=== PATIENT | male | born 1980 | race Caucasian/White ===

== ENCOUNTER 2016-10-03 17:13 | Emergency (ER) | payer BC ==
[2016-10-03] MEDS ORDERED: ONDANSETRON DISINTEGRATING 4 MG TAB PO ONE (17:21)
[2016-10-03 17:30] VITALS: TEMP 98.1
--- NOTE | 2016-10-03 18:32 | EDPHY ---
H & P Stated Complaint: vomit, diarrhea, R lower abd pain Time Seen by Provider: 10/03/16 18:31 - Personal History Current Tetanus/Diphtheria Vaccine: Unsure Current Tetanus Diphtheria and Acellular Pertussis (TDAP): Unsure - Medical/Surgical History Hx Asthma: No Hx Chronic Respiratory Disease: No Hx Diabetes: No Hx Cardiac Disease: No Hx Renal Disease: No Hx Cirrhosis: No Hx Alcoholism: No Hx HIV/AIDS: No Hx Splenectomy or Spleen Trauma: No Other PMH: no abd surgeries in past. CIDPN - Social History Smoking Status: Never smoked Constitutional: Initial Vital Signs Temperature (C) 36.7 C 10/03/16 17:26 Heart Rate 89 10/03/16 17:26 Respiratory Rate 20 10/03/16 17:26 Blood Pressure 154/117 H 10/03/16 17:26 O2 Sat (%) 98 10/03/16 17:26 O2 Delivery Mode Room Air Allergies/Adverse Reactions: No Known Allergies Allergy (Unverified 10/03/16 20:25) Medical Decision Making - Diagnostics Imaging Results: Imaging Impressions Abdomen CT 10/03/16 18:42 Impression: 1. Focal area of colonic narrowing in the sigmoid: This may be focal decreased motility secondary to the Imodium. 2. Diffuse gaseous dilatation of the colon proximal to the abnormal region in the sigmoid colon. 3. See above report for additional findings. Results called and discussed with Ady Quiroz MD on 10/03/2016 at 20:07 Imaging: Discussed imaging studies w/ petrography teacher Radiologist, I viewed and interpreted images myself ED Course/Re-evaluation: CHIEF COMPLAINT: N/V/D abdominal pain HISTORY OF PRESENT ILLNESS: The patient is a 36 y/o male complaining of vomiting, diarrhea, and RLQ abdominal pain over the last two days. He first developed nausea and vomiting Thursday morning that he initially attributed to food poisoning. He continued to vomit through Thursday night, but it mostly resolved by . He then began have diarrhea that was so frequent he was unable to leave the bathroom. He describes his stool as yellow liquid. This was associated with abdominal pain that has progressively become more severe and is primarily located along his RLQ. He has been unable to eat or drink much since onset. He took Imodium today, but feels his abdominal pain worsened after using it. No history of abdominal surgeries. REVIEW OF SYSTEMS: A 10 point review of systems was performed and is negative with the exception of the elements mentioned in the history of present illness. PHYSICAL EXAM: HR, BP, O2 Sat, RR. Temp noted General Appearance: Alert, well hydrated, appropriate, and non-toxic appearing. Head: Atraumatic without scalp tenderness or obvious injury Eyes: Pupils equal, round, reactive to light and accommodation, EOMI, no trauma , no injection. Nose: Atraumatic, no rhinorrhea, clear. Throat: There is no erythema or exudates, no lesions, normal tonsils, mucus membranes moist. Neck: Supple, nontender, no lymphadenopathy. Respiratory: No retractions, no distress, no wheezes, and no accessory muscle use. Lungs are clear to auscultation bilaterally. Cardiovascular: Regular rate and rhythm, no murmurs, rubs, or gallops. Good capillary refill all extremities. Gastrointestinal: Abdomen is soft, diffuse tenderness worse in RLQ, non- distended, no masses, no rebound, no guarding, no peritoneal signs. Musculoskeletal: Normal active ROM of all extremities, atraumatic. Neurological: Alert, appropriate, and interactive. Nonfocal neuro exam. Skin: No rashes, good turgor, no nodules on palpation. Past medical history: CIDP - chronic inflammatory demyelinating polyneuropathy Past surgical history: tonsillectomy Family history: noncontributory Social history: Employed DIAGNOSTICS/PROCEDURES/CRITICAL CARE TIME: Abdominal CT: gastroenteritis, dilated colon DIFFERENTIAL DIAGNOSIS: The differential diagnosis for the patient's vomiting and abdominal pain included but was not limited to gastroenteritis, gastritis, appendicitis, medication side effect, cholecystitis, hernias, testicular torsion , and urinary tract infection. MEDICAL DECISION MAKING: This is a normally healthy 36 y/o male who presents with 2-day history of vomiting and diarrhea and 1-day history of RLQ abdominal pain. He has diffuse abdominal tenderness on exam worse in RLQ. He is afebrile and exam is otherwise unremarkable. Plan for IV, fluids, symptom management, and abdominal CT. 1mg Dilaudid, 4mg IV Zofran, 1L IV NS administered. 2024: Reassessed patient and discussed work up. CT shows gastroenteritis. Labs unremarkable. He feels improved since medication administration and his abdomen is much less tender on reexamination. He is comfortable with plan for discharge home with scripts for Zofran and [place]. I've recommended discontinuing the Imodium as this worsened his symptoms. He's been referred to his PCP or GI as needed for follow up. Strict return precautions given. - Data Points Laboratory Results: Laboratory Results 10/03/16 18:45 10/03/16 18:45 10/03/16 10/03/16 10/03/16 18:55 18:45 18:45 WBC 7.59 10^3/uL 10^3/uL (3.80-9.50) RBC 5.59 10^6/uL 10^6/uL (4.40-6.38) Hgb 17.3 g/dL g/dL (13.7-17.5) POC Hgb 17.0 gm/dL gm/dL (14.5-17.3) Hct 49.3 % % (40.0-51.0) POC Hct 50 % % (42.8-50.6) MCV 88.2 fL fL (81.5-99.8) MCH 30.9 pg pg (27.9-34.1) MCHC 35.1 g/dL g/dL (32.4-36.7) RDW 12.8 % % (11.5-15.2) Plt Count 288 10^3/uL 10^3/uL (150-400) MPV 9.5 fL fL (8.7-11.7) Neut % (Auto) 73.5 % % (39.3-74.2) Lymph % (Auto) 16.5 % % (15.0-45.0) [place] % (Auto) 8.8 % % (4.5-13.0) Eos % (Auto) 0.8 % % (0.6-7.6) Baso % (Auto) 0.1 % L % (0.3-1.7) Nucleat RBC Rel Count 0.0 % % (0.0-0.2) Absolute Neuts (auto) 5.58 10^3/uL 10^3/uL (1.70-6.50) Absolute Lymphs (auto) 1.25 10^3/uL 10^3/uL (1.00-3.00) Absolute Monos (auto) 0.67 10^3/uL 10^3/uL (0.30-0.80) Absolute Eos (auto) 0.06 10^3/uL 10^3/uL (0.03-0.40) Absolute Basos (auto) 0.01 10^3/uL L 10^3/uL (0.02-0.10) Absolute Nucleated RBC 0.00 10^3/uL 10^3/uL (0-0.01) Immature Gran % 0.3 % % (0.0-1.1) Immature Gran # 0.02 10^3/uL 10^3/uL (0.00-0.10) POC Sodium 139 mEq/L mEq/L (134-144) Sodium 140 mEq/L mEq/L (134-144) POC Potassium 6.2 mEq/L H mEq/L (3.3-5.0) Potassium 4.0 mEq/L mEq/L (3.5-5.2) POC Chloride 103 mEq/L mEq/L (96-108) Chloride 103 mEq/L mEq/L (97-110) Carbon Dioxide 22 mEq/l mEq/l (22-31) Anion Gap 15 mEq/L mEq/L (8-16) POC BUN 31 mg/dL H mg/dL (7-23) BUN 20 mg/dL mg/dL (7-23) Creatinine 1.1 mg/dL mg/dL (0.7-1.3) POC Creatinine 1.2 mg/dL mg/dL (0.8-1.5) Estimated GFR > 60 Glucose 101 mg/dL H mg/dL (70-100) POC Glucose 97 mg/dL mg/dL (70-100) Calcium 10.0 mg/dL mg/dL (8.5-10.4) Total Bilirubin 2.0 mg/dL H mg/dL (0.1-1.4) Conjugated Bilirubin 0.3 mg/dL mg/dL (0.0-0.5) Unconjugated Bilirubin 1.7 mg/dL H mg/dL (0.0-1.1) AST 56 IU/L IU/L (17-59) ALT 91 IU/L H IU/L (21-72) Alkaline Phosphatase 84 IU/L IU/L (38-126) Total Protein 8.9 g/dL H g/dL (6.3-8.2) Albumin 5.1 g/dL H g/dL (3.5-5.0) Lipase 80.0 IU/L IU/L (23-300) Medications Given: Discontinued Medications Hydromorphone HCl (Dilaudid) 1 mg IVP EDNOW ONE Stop: 10/03/16 18:42 Last Admin: 10/03/16 19:20 Dose: 1 mg Sodium Chloride (Ns) 1,000 mls @ 0 mls/hr IV ONCE ONE PRN Reason: Wide Open Stop: 10/03/16 18:42 Last Admin: 10/03/16 19:00 Dose: 1,000 mls Ondansetron HCl (Zofran Odt) 4 mg PO EDNOW ONE Stop: 10/03/16 17:22 Last Admin: 10/03/16 19:00 Dose: 4 mg Ondansetron HCl (Zofran) 4 mg IVP EDNOW ONE Stop: 10/03/16 18:42 Last Admin: 10/03/16 19:00 Dose: 4 mg Point of Care Test Results: 10/03/16 18:55 POC Sodium 139 POC Potassium 6.2 H POC Chloride 103 POC BUN 31 H POC Creatinine 1.2 POC Glucose 97 Departure - Departure Disposition: Home, Routine, Self-Care Clinical Impression: Gastroenteritis, Dehydration Diarrhea Qualifiers: Diarrhea type: unspecified type Qualified Code(s): R19.7 - Diarrhea, unspecified Condition: Good Instructions: Loperamide (By mouth), Gastroenteritis (ED), Acute Nausea and Vomiting (ED), Acute Diarrhea (ED), Acute Abdominal Pain (ED) Additional Instructions: 1. Use Zofran as prescribed when needed for nausea or vomiting. 2. Discontinue Imodium. 3. Increase fluid intake as tolerated. 4. Follow up with your primary care provider or [employer] for unimproved symptoms over the next 2-3 days. 5. Return to the ED for any worsening of condition. Referrals: Ken Jeffries MD, FACG [Medical Doctor] - As per Instructions Report Scribed for: Ady Quiroz Report Scribed by: Tarah Bateman Date of Report: 10/03/16 Time of Report: 19:31
[2016-10-03] MEDS ORDERED: NS 1,000 ML IV ONE (18:41)
[2016-10-03] MEDS ORDERED: ONDANSETRON 4 MG/2 ML VIAL IVP ONE (18:41)
[2016-10-03] MEDS ORDERED: HYDROmorphONE/DILAUDID 1 MG/ML SYR IVP ONE (18:41)
[2016-10-03 18:52] LABS: % IMMATURE GRANULYOCYTES 0.3 % (0.0-1.1); ABSOLUTE IMMATURE GRANULOCYTES 0.02 10^3/uL (0.00-0.10); ADD DIFF? NO; ADD MORPH? NO; ADD SCAN? NO; ATYPICAL LYMPHOCYTE FLAG 30 (0-99); FRAGMENT RBC FLAG 0 (0-99); HEMATOCRIT 49.3 % (40.0-51.0); HEMOGLOBIN 17.3 g/dL (13.7-17.5); LEFT SHIFT FLG 0 (0-99); LIPEMIA HEMOLYSIS FLAG 90 (0-99); MEAN CELL HEMOGLOBIN 30.9 pg (27.9-34.1); MEAN CELL HEMOGLOBIN CONCENTR. 35.1 g/dL (32.4-36.7); MEAN CELL VOLUME 88.2 fL (81.5-99.8); MEAN PLATELET VOLUME 9.5 fL (8.7-11.7); PLATELET CLUMPS FLAG 0 (0-99); PLATELET COUNT 288 10^3/uL (150-400); RED BLOOD CELL COUNT 5.59 10^6/uL (4.40-6.38); RED CELL DISTRIBUTION WIDTH 12.8 % (11.5-15.2)
[2016-10-03 19:08] LABS: ALANINE AMINOTRANSFERASE 91 IU/L (21-72); ALBUMIN 5.1 g/dL (3.5-5.0); ALKALINE PHOSPHATASE 84 IU/L (38-126); ANION GAP 15 mEq/L (8-16); ASPARTATE AMINOTRANSFERASE 56 IU/L (17-59); BILIRUBIN-CONJUGATED 0.3 mg/dL (0.0-0.5); BILIRUBIN-UNCONJUGATED 1.7 mg/dL (0.0-1.1); CARBON DIOXIDE 22 mEq/l (22-31); CHLORIDE 103 mEq/L (97-110); CREATININE 1.1 mg/dL (0.7-1.3); GLOMERULAR FILTRATION RATE > 60; GLUCOSE 101 mg/dL (70-100); SODIUM 140 mEq/L (134-144); TOTAL PROTEIN 8.9 g/dL (6.3-8.2)
[2016-10-03] MEDS ORDERED: IOPAMIDOL (ISOVUE-300) 100 ML BTL ONE (19:17)
[2016-10-03] MEDS ORDERED: ONDANSETRON 4MG PREPACK#2 BTL TAKEHOME ONE (20:22)
[2016-10-03] MEDS ORDERED: HYDROCOD/APAP 5/325 PREPACK#6 BTL TAKEHOME ONE (20:28)
[2016-10-03] MEDS ORDERED: DICYCLOMINE 20 MG TAB PO ONE (20:29)
[2016-10-03 20:38] VITALS: O2SAT 98
[2016-10-03 20:42] VITALS: BP 125/97; PULSE 70; RESP 16
== END 2016-10-03 20:40 | disposition home or self-care (01) ==
DX: K52.9 Noninfective gastroenteritis and colitis, unspecified (principal)
CPT/HCPCS: 82947-QW; 96374; J1170; J2405; Q9967